=== PATIENT | female | born 1945 | race Caucasian/White ===

== ENCOUNTER 2016-11-29 14:56 | Emergency (ER) | payer BC, MEDICARE ==
[2016-11-29 16:51] VITALS: BP 150/53
--- NOTE | 2016-11-29 17:25 | UC ---
Abdominal Pain Female HPI - HPI Summary HPI Summary: 7 day history of low abdominal pain, more on the right than the left, associated with constipation. The constipation improved over the week, but the pain continued. Due to continued pain, she came to be assessed today. Once at [facility], she was incontinence of large loose watery stool x 1, followed by another watery stool. She does have a history of IBS with previous similar experiences with diarrhea stool. No nausea or vomiting, appetite has been low. Just did well check about 10 days ago, and had labs drawn. Only change made at that time was increase in daily vit D to 5000 iu per day due to osteoporosis and low level of D on testing. Under stress: her son had open heart surgery on at [facility]; doing well at present. Had a colonoscopy 4 or 5 years ago which was normal. Has a hemoccult to do for her PMD. - History of Current Complaint Chief Complaint: UCGI Stated Complaint: DIARRHEA Time Seen by Provider: 11/29/16 17:11 Hx Obtained From: Patient Onset/Duration: Gradual Onset, Lasting Days - 7 Timing: Intermittent Episodes Lasting: - hours; notably was not awakening in the night with pain Severity Initially: Moderate Severity Currently: Mild Pain Intensity: 1 Pain Scale Used: 0-10 Numeric Location: Discrete At: RLQ, Suprapubic Radiates: No Character: Aching, Cramping Aggravating Factor(s): Movement Alleviating Factor(s): Nothing - no analgesics used. Associated Signs and Symptoms: Positive: Negative Allergies/Adverse Reactions: Allergies Allergy/AdvReac Type Severity Reaction Status Date / Time Aspirin Allergy Unknown Verified 11/29/16 16:52 Reaction Details Home Medications: Home Medications Alendronate Sodium [Fosamax-] 70 mg PO WEEKLY 11/29/16 [History Confirmed ] Simvastatin [Zocor 40 MG (NF)] 20 mg PO QPM 11/29/16 [History Confirmed 11/29/16 ] PMH/Surg Hx/FS Hx/Imm Hx - Additional Past Medical History Additional PMH: osteoporosis and vitamin D deficience Previously Healthy: Yes - Surgical History Surgical History: Yes Surgery Procedure, Year, and Place: inguinal hernia , tubal ligation, tooth extractions - Family History Known Family History: Positive: Other - son has congenital heart disease - Social History Occupation: Retired Lives: Alone Alcohol Use: None Substance Use Type: None Substance Use Comment - Amount & Last Used: 1-5 coffee per day Smoking Status (MU): Heavy Every Day Tobacco Smoker Review of Systems Constitutional: Fatigue Skin: Negative Eyes: Negative ENT: Negative Respiratory: Other - chronic smoking, trying to stop; recently addressed at [facility] Cardiovascular: Negative Gastrointestinal: Abdominal Pain, Diarrhea, Other - decreased appetite Genitourinary: Negative Motor: Negative Neurovascular: Negative Musculoskeletal: Negative Neurological: Negative Psychological: Other - has been worried about her son, who is still in hospital All Other Systems Reviewed And Are Negative: Yes Physical Exam Triage Information Reviewed: Yes Appearance: Ill-Appearing - thin, looks chronically unwell., Thin Vital Signs: Initial Vital Signs Temp 98.6 F 11/29/16 16:39 Pulse 83 11/29/16 16:39 Resp 32 11/29/16 16:39 BP 150/53 11/29/16 16:39 Pulse Ox 98 11/29/16 16:39 Vital Signs Reviewed: Yes Eye Exam: Normal ENT: Positive: Pharynx normal Dental Exam: Normal Neck: Positive: Supple, Nontender Respiratory: Positive: Lungs clear, Normal breath sounds Cardiovascular: Positive: RRR, No Murmur Abdomen Description: Positive: Soft, Other: - tenderness without guarding or rebound in the right lower abdomen/suprpubic area.. Negative: CVA Tenderness (R ), CVA Tenderness (L), Guarding, Splenomegaly Bowel Sounds: Positive: Present Musculoskeletal Exam: Normal Neurological Exam: Normal Psychological Exam: Normal Skin Exam: Normal Abd Pain Female Course/Dx - Course Course Of Treatment: observation, increase intake, follow up with PMD - Differential Dx/Diagnosis Differential Diagnosis: Appendicitis, Constipation, Diverticulitis Provider Diagnoses: abdominal pain NYD. No peritoneal findings or suggestion of obstruction Discharge - Discharge Plan Condition: Stable Disposition: HOME Patient Education Materials: Abdominal Pain (ED) Additional Instructions: There are no clinical findings to suggest appendicitis, but the cause of the pain is not clear. Your urine is concentrated and you would benefit from increasing fluids and intake. If the pain increases over the next hours, please return to the emergency room for evaluation and testing. If you continue to have pain, please see your primary care doctor either tomorrow or Wednesday to arrange more testing.
== END 2016-11-29 18:20 | disposition home or self-care (01) ==
LOC: UCCORT 14:56
DX: R10.31 Right lower quadrant pain (principal); R10.32 Left lower quadrant pain; R19.7 Diarrhea, unspecified; Z88.6 Allergy status to analgesic agent; F17.210 Nicotine dependence, cigarettes, uncomplicated
CPT/HCPCS: 87086; 99201; G0463